=== PATIENT | male | born 1940 | race Caucasian/White ===

== ENCOUNTER 2016-12-22 06:23 | Day surgery (SDC) | payer BC, MEDICARE ==
[~2016-12-22] VITALS: Ht 182.9 cm; Wt 126.6 kg
[~2016-12-22 06:23] MED LIST: ASPIRIN 81M81 MG/TA2 PO; ATIVAN 1MG T1 MG/TAB PO; COZAAR 50MG50 MG/TAB PO; DUTOPROL 12.5 M1 TE2 PO; ISOPTIN SR240 MG PO; PHENERGAN50 M1 PO; PRAVACHOL 20MG20 MG PO; VERELAN240 MG PO; XARELTO20 MG PO
[2016-12-22 07:04] VITALS: BP 142/95; PULSE 99; TEMP 96.6
[2016-12-22 08:40] VITALS: BP 135/84; PULSE 96
[2016-12-22 08:55] VITALS: BP 138/97; PULSE 81
[2016-12-22 09:10] VITALS: BP 118/93; PULSE 84
[2016-12-22 09:25] VITALS: BP 125/77; PULSE 87
[2016-12-22 09:40] VITALS: BP 133/79; PULSE 89
== END 2016-12-22 10:00 | disposition home or self-care (01) ==
LOC: SDCO 06:23
DX: K63.5 Polyp of colon (principal); K62.1 Rectal polyp; K52.9 Noninfective gastroenteritis and colitis, unspecified; K57.30 Diverticulosis of large intestine without perforation or abscess without bleeding; I48.91 Unspecified atrial fibrillation; Z79.01 Long term (current) use of anticoagulants; I10 Essential (primary) hypertension; G47.30 Sleep apnea, unspecified
CPT/HCPCS: J2250; J3010; J7030

== ENCOUNTER 2017-02-08 15:02 | Inpatient (IN) | payer MEDICARE, BC ==
[~2017-02-08] VITALS: Ht 182.9 cm; Wt 129.8 kg
[2017-02-15 08:21] VITALS: BP 122/75; PULSE 101; TEMP 98
[2017-02-15] MEDS ORDERED: LOPRESSOR 225 MG/TAB PO (09:21)
[2017-02-15] MEDS ORDERED: COZAAR 25MG25 MG/TAB PO (09:23)
[2017-02-15 09:57] LABS: HEMATOCRIT 49.6 % (42.0-52.0); HEMOGLOBIN 15.9 g/dl (13.5-18.0); MEAN CELL VOLUME 87 fl (80.0-100.0); MEAN CORPUSCULAR HEMOGLOBIN 28 pg (27.0-31.0); MEAN CORPUSCULAR HGB CONC 32 g/dl (33.0-37.0); MEAN PLATELET VOLUME 9.3 fl (7.4-10.4); PLATELET COUNT 260 K/mm3 (130-400); RED BLOOD COUNT 5.69 M/mm3 (4.20-5.60); REDCELL DISTRIBUTION WIDTH-CV 14.6 % (11.5-14.5); WHITE BLOOD COUNT 6.5 K/mm3 (4.8-10.8)
[2017-02-15 10:06] LABS: INR 1.4 (0.8-3.0); PROTHROMBIN TIME 15.6 SECONDS (9.7-12.8)
[2017-02-15 10:14] LABS: ADJUSTED CALCIUM 9.8 mg/dL (8.4-10.2); ALBUMIN 3.8 gm/dL (3.5-5.0); BILIRUBIN,TOTAL 0.6 mg/dL (0.0-1.0); CALCIUM 9.6 mg/dL (8.4-10.2); CREATININE, serum 0.83 mg/dL (0.66-1.25); POTASSIUM 4.1 mmol/L (3.4-5.0)
[2017-02-15 10:44] LABS: MAGNESIUM 2.1 mg/dL (1.6-2.3)
[2017-02-15 13:24] VITALS: BP 131/76; PULSE 83; TEMP 98.1
[2017-02-15 17:12] VITALS: BP 128/78; PULSE 76; TEMP 98.4
[2017-02-15 20:30] VITALS: BP 142/90; PULSE 71; TEMP 97.6
[2017-02-15 23:43] VITALS: BP 119/66; PULSE 76; TEMP 97.4
[2017-02-16 07:48] VITALS: BP 141/89; PULSE 78; TEMP 97.8
[2017-02-16 11:59] VITALS: BP 108/71; PULSE 65; TEMP 98.5
[2017-02-16 14:59] VITALS: BP 111/70; PULSE 59; TEMP 98.3
[2017-02-16 20:16] VITALS: BP 127/67; PULSE 71; TEMP 98.1
[2017-02-17] VITALS (7 sets, daily range): BP systolic 118–127; BP diastolic 66–85; PULSE 49–89; TEMP 97.6–98.2
[2017-02-17 07:33] LABS: INR 1.3 (0.8-3.0)
[2017-02-17 07:46] LABS: POTASSIUM 3.9 mmol/L (3.4-5.0)
[2017-02-17 08:17] LABS: THYROID STIMULATING HORMONE 1.8 uIU/mL (0.465-4.680)
[2017-02-17] MEDS ORDERED: NORVASC 5MG5 MG/TAB PO (16:36)
[2017-02-17] MEDS ORDERED: BETAPACEAF120 PO (16:37)
== END 2017-02-17 18:19 | disposition home or self-care (01) | DRG 310 ==
LOC: MEDICAL 02-15 06:27
PROVIDERS: Internal Medicine Cardiovascular Disease
PROC: 5A2204Z Restoration of Cardiac Rhythm, Single (ICD-10-PCS; principal; 2017-02-17)
DX: I48.91 Unspecified atrial fibrillation (principal); G47.33 Obstructive sleep apnea (adult) (pediatric); Z86.73 Personal history of transient ischemic attack (TIA), and cerebral infarction without residual deficits
CPT/HCPCS: J7030

== ENCOUNTER 2018-02-01 13:20 | Day surgery (SDC) | payer BC ==
[~2018-02-01] VITALS: Ht 183 cm; Wt 130.7 kg
[~2018-02-01 13:20] MED LIST changes: +BETAPACEAF120 PO; +COZAAR 25MG25 MG/TAB PO; +LOPRESSOR 225 MG/TAB PO; +NORVASC 5MG5 MG/TAB PO
[2018-02-01 13:51] LABS: POTASSIUM 4.3 mmol/L (3.4-5.0)
[2018-02-01 13:52] LABS: INR 1.6 (0.8-3.0); PROTHROMBIN TIME 18.2 SECONDS (9.7-12.8)
[2018-02-01 13:59] VITALS: BP 148/103; PULSE 107; TEMP 97.7
[2018-02-01 14:26] LABS: THYROID STIMULATING HORMONE 1.51 uIU/mL (0.465-4.680)
[2018-02-01 15:00] VITALS: BP 138/105; PULSE 77
[2018-02-01] MEDS ORDERED: CORDARONE200 MG/TAB PO (15:02)
[2018-02-01 15:15] VITALS: BP 123/95; PULSE 74
[2018-02-01 15:30] VITALS: BP 132/89; PULSE 69
[2018-02-01 16:00] VITALS: BP 136/85; PULSE 69
[2018-02-01 16:30] VITALS: BP 129/84; PULSE 77
== END 2018-02-01 17:40 | disposition home or self-care (01) ==
LOC: COL.CAR 13:20
PROVIDERS: Internal Medicine Cardiovascular Disease
DX: I48.0 Paroxysmal atrial fibrillation (principal); I10 Essential (primary) hypertension; E78.5 Hyperlipidemia, unspecified; G47.33 Obstructive sleep apnea (adult) (pediatric); E66.9 Obesity, unspecified; Z68.39 Body mass index [BMI] 39.0-39.9, adult; Z79.01 Long term (current) use of anticoagulants; Z86.73 Personal history of transient ischemic attack (TIA), and cerebral infarction without residual deficits
CPT/HCPCS: J2250; J3010; J7030

== ENCOUNTER → 2018-02-09 | Outpatient (CLI) | payer BC ==
[~2018-02-09] MED LIST changes: +CORDARONE200 MG/TAB PO
== END ==
LOC: COL.PUL 10:00
DX: Z79.899 Other long term (current) drug therapy (principal)

== ENCOUNTER 2018-02-14 08:48 | Day surgery (SDC) | payer BC ==
[~2018-02-14] VITALS: Ht 183.2 cm; Wt 131.8 kg
[2018-02-14] VITALS (8 sets, daily range): BP systolic 114–143; BP diastolic 78–96; PULSE 53–82; TEMP 98.3
[2018-02-14 09:24] LABS: POTASSIUM 4.2 mmol/L (3.4-5.0)
[2018-02-14 09:26] LABS: INR 1.7 (0.8-3.0); PROTHROMBIN TIME 20.4 SECONDS (9.7-12.8)
[2018-02-14 09:59] LABS: THYROID STIMULATING HORMONE 2.72 uIU/mL (0.465-4.680)
[2018-02-14] MEDS ORDERED: CORDARONE200 MG/TAB PO (11:08)
== END 2018-02-14 12:29 | disposition home or self-care (01) ==
LOC: COL.CAR 08:48
PROVIDERS: Internal Medicine Cardiovascular Disease
DX: I48.91 Unspecified atrial fibrillation (principal); I10 Essential (primary) hypertension; E78.5 Hyperlipidemia, unspecified; G47.33 Obstructive sleep apnea (adult) (pediatric); Z86.73 Personal history of transient ischemic attack (TIA), and cerebral infarction without residual deficits; E66.9 Obesity, unspecified; Z68.39 Body mass index [BMI] 39.0-39.9, adult; Z82.49 Family history of ischemic heart disease and other diseases of the circulatory system; Z79.01 Long term (current) use of anticoagulants
CPT/HCPCS: J2250; J3010

== ENCOUNTER → 2019-03-12 | Outpatient (CLI) | payer BC | LOC: COL.RAD 08:20 | DX: I10 Essential (primary) hypertension (principal) ==

== ENCOUNTER → 2019-10-29 | Outpatient (CLI) | payer BC | LOC: COL.PUL 10-22 08:00 | DX: Z51.81 Encounter for therapeutic drug level monitoring (principal); Z79.899 Other long term (current) drug therapy ==

== ENCOUNTER 2024-08-07 17:35 | Emergency (ER) | payer BC ==
[~2024-08-07] VITALS: Ht 182.9 cm; Wt 125.0 kg
[2024-08-07 17:41] VITALS: TEMP 98.1
[2024-08-07 18:41] LABS: COLLECTION METHOD CLEAN CATCH
[2024-08-07 18:50] VITALS: BP 135/70; PULSE 98
[2024-08-07 18:53] LABS: PH 5.5 (5.0-8.5); URINE APPEARANCE TURBID (CLEAR/HAZY); URINE BLOOD 3+ (NEGATIVE); URINE GLUCOSE NEGATIVE (NEGATIVE); URINE KETONE NEGATIVE (NEGATIVE); URINE NITRATE NEGATIVE (NEGATIVE); URINE PROTEIN(semi-quant) 2+ (NEGATIVE)
[2024-08-07 18:58] LABS: URINE COLOR Amber (YELLOW)
[2024-08-07] MEDS ORDERED: CIPRO 500MG TA500 MG PO (19:24)
== END 2024-08-07 18:50 | disposition home or self-care (01) ==
LOC: COL.ER 17:35
PROVIDERS: Physician Assistant
DX: N40.0 Benign prostatic hyperplasia without lower urinary tract symptoms (principal); N39.0 Urinary tract infection, site not specified
CPT/HCPCS: 31860; A4314